=== PATIENT | female | born 1955 | race Caucasian/White ===

== ENCOUNTER → 2017-07-29 | Outpatient (CLI) | payer BC ==
[~2017-07-29] MED LIST: ACET325 PO; ALPR.5 PO; ASPI325 PO; ASPI81CH PO; Ativan0.5 MG PO; Augmentin 875-1 EACH PO; LEVO750 PO; LORA1 PO; MAGCHL64ER; Toprol Xl25 MG PO
== END | disposition home or self-care (01) ==
LOC: LAB 12:25 → LAB SHORT 12:25
PROVIDERS: Nurse Practitioner Obstetrics & Gynecology
DX: Z01.419 Encounter for gynecological examination (general) (routine) without abnormal findings (principal)
CPT/HCPCS: 87624; G0123

== ENCOUNTER 2017-09-30 03:47 | Emergency (ER) | payer BC ==
[~2017-09-30] VITALS: Ht 177.8 cm; Wt 95.2 kg
[2017-09-30 04:41] LABS: BASOPHILS ABSOLUTE AUTO 0.06 K/mm3 (0.00-0.23); BASOPHILS PERCENT AUTO 1 % (0-2); EOSINOPHILS ABSOLUTE AUTO 0.43 K/mm3 (0.00-0.68); EOSINOPHILS PERCENT AUTO 6 % (0-6); Hemoglobin 13.6 g/dL (11.5-16.0); IMMATURE GRAN ABSOLUTE AUTO 0.01 K/mm3 (0.00-0.10); IMMATURE GRAN PERCENT AUTO 0 % (0-1); LYMPHOCYTES ABSOLUTE AUTO 2.13 K/mm3 (0.84-5.20); LYMPHOCYTES PERCENT AUTO 29 % (21-46); MONOCYTES ABSOLUTE AUTO 0.71 K/mm3 (0.16-1.47); MONOCYTES PERCENT AUTO 10 % (4-13); Mean Corpuscular HGB 30.6 pg (26.0-34.0); Mean Corpuscular HGB Conc 33.2 g/dL (31.5-36.5); Mean Corpuscular Volume 92 fL (80-100); Mean Platelet Volume 9.4 fL (9.1-12.4); NEUTROPHILS ABSOLUTE AUTO 3.94 K/mm3 (1.96-9.15); NEUTROPHILS PERCENT AUTO 54 % (41-73); Platelet Count 278 K/mm3 (150-400); RDW Coefficient Variation 12.5 % (11.7-14.2); RDW Standard Deviation 42.2 fL (35.1-46.3); Red Blood Cell Count 4.45 M/mm3 (3.80-5.20); White Blood Cell Count 7.28 K/mm3 (4.00-11.30)
[2017-09-30] MEDS ORDERED: ASPI81CH PO (04:56)
[2017-09-30 05:01] LABS: Alanine Aminotransfer (ALT/SGP 23 U/L (12-78); Albumin, Blood 3.5 g/dL (3.4-5.0); Albumin/Globulin Ratio 0.9 (0.8-1.8); Alk Phos 87 U/L (50-136); Anion Gap 9 mmol/L (6-16); Aspartate Aminotrans (AST/SGOT 19 U/L (12-37); Bilirubin, Total 0.4 mg/dL (0.1-1.0); Blood Urea Nitrogen 20 mg/dL (8-24); Bun/Creatinine Ratio 27.8 (12.0-20.0); CO2, Blood 26 mmol/L (21-32); Calcium, Blood 8.5 mg/dL (8.5-10.1); Chloride, Blood 106 mmol/L (98-108); Creatinine, Blood 0.72 mg/dL (0.40-1.00); Globulin, Blood 3.8 g/dL (2.2-4.0); Glomerular Filtration Rate >60 (60-); Glucose, Blood 116 mg/dL (70-99); Potassium, Blood 3.7 mmol/L (3.5-5.5); Sodium, Blood 141 mmol/L (136-145); Total Protein, Blood 7.3 g/dL (6.4-8.2); Troponin I <0.015 ng/mL (0.000-0.040)
[2017-09-30] MEDS ORDERED: MECL12.5 PO (05:31)
[2017-09-30] MEDS ORDERED: OXYM.05NI (05:31)
== END 2017-09-30 05:45 | disposition home or self-care (01) ==
LOC: ER 03:47
PROVIDERS: Emergency Medicine
DX: R42 Dizziness and giddiness (principal); R11.0 Nausea; Z79.899 Other long term (current) drug therapy
CPT/HCPCS: 36415; 71046; 80053; 84484; 85025; 93005; 93010; 99284-25

== ENCOUNTER 2021-07-10 06:21 | Day surgery (SDC) | payer MEDICARE ==
[~2021-07-10] VITALS: Ht 177.8 cm; Wt 101.6 kg
[~2021-07-10 06:21] MED LIST changes: +CALCIUM CIT 311 EACH; +MECL12.5 PO; +OXYM.05NI
== END 2021-07-10 08:25 | disposition home or self-care (01) ==
LOC: ORSCSDS 06:21
PROVIDERS: Ophthalmology
PROC: 08RK3JZ Replacement of Left Lens with Synthetic Substitute, Percutaneous Approach (ICD-10-PCS; principal; 2021-07-10 07:30)
DX: H25.13 Age-related nuclear cataract, bilateral (principal); Z79.82 Long term (current) use of aspirin; E78.5 Hyperlipidemia, unspecified; I48.91 Unspecified atrial fibrillation; F41.8 Other specified anxiety disorders; E11.9 Type 2 diabetes mellitus without complications; K21.9 Gastro-esophageal reflux disease without esophagitis; E66.9 Obesity, unspecified; Z68.32 Body mass index [BMI] 32.0-32.9, adult
CPT/HCPCS: 82947; J2001; J2250; J3010; J3301; J7040; J7120; V2632

== ENCOUNTER 2021-08-07 06:23 | Day surgery (SDC) | payer MEDICARE ==
[~2021-08-07] VITALS: Ht 175.3 cm; Wt 101.3 kg
--- NOTE | 2021-08-07 06:56 | NUR ---
08/07/21 0656 ERWIN MYERS TETRACAINE DROP PLACED AT 649, PLEUGETTE PLACED AT 651
== END 2021-08-07 08:15 | disposition home or self-care (01) ==
LOC: ORSCSDS 06:23
PROVIDERS: Ophthalmology
PROC: 08RJ3JZ Replacement of Right Lens with Synthetic Substitute, Percutaneous Approach (ICD-10-PCS; principal; 2021-08-07 07:30)
DX: H25.11 Age-related nuclear cataract, right eye (principal); K21.9 Gastro-esophageal reflux disease without esophagitis; I48.0 Paroxysmal atrial fibrillation; F41.9 Anxiety disorder, unspecified; F32.A Depression, unspecified; I10 Essential (primary) hypertension; E78.5 Hyperlipidemia, unspecified; E11.9 Type 2 diabetes mellitus without complications; E66.9 Obesity, unspecified; Z68.33 Body mass index [BMI] 33.0-33.9, adult; Z79.82 Long term (current) use of aspirin; Z79.899 Other long term (current) drug therapy
CPT/HCPCS: 82947; J2001; J2250; J3010; J3301; J7040; V2632